=== PATIENT | female | born 1980 | race Two or more races ===

== ENCOUNTER 2023-12-07 20:30 | Emergency (ER) | payer MEDICAID, OTHER ==
[~2023-12-07] VITALS: Ht 157.5 cm; Wt 80.0 kg
[2023-12-07 21:36] VITALS: PULSE 133; RESP 15; O2SAT 89
[2023-12-07] MEDS: SODIUM CHLORIDE 0.9% 1,000 ML IVB ONE (22:05)
[2023-12-07] MEDS: ONDANSETRON HCL 4 MG/2 ML VIAL IV ONE (22:06)
[2023-12-07 22:09] LABS: Basophils # (auto) 0 10 ^3/uL (0-0.2); Basophils % (auto) 0.2 % (0.0-2.0); Eosinophils # (auto) 0 10 ^3/uL (0-0.8); Hemoglobin 14.6 g/dL (12.2-16.2); Lymphocytes # (auto) 0.8 10 ^3/uL (0.4-5.4); Lymphocytes % (auto) 9.8 % (10.0-50.0); Mean Corpuscular Hemoglobin 28.8 pg (28.0-32.0); Mean Corpuscular Hgb Conc. 34.7 g/dL (32.0-36.0); Monocytes # (auto) 0.6 10 ^3/uL (0-1.3); Monocytes % (auto) 7.2 % (0.0-12.0); Neutrophils # (auto) 6.5 10 ^3/uL (1.6-8.6); Neutrophils % (auto) 82.8 % (37.0-80.0); Red Blood Cells 5.06 10^6/uL (4.0-5.20); Red Cell Distribution Width 13.1 % (11.8-14.3); White Blood Cell 7.8 10^3/uL (4.4-10.8)
[2023-12-07] MEDS: MORPHINE SULFATE 4 MG/ML SYR/VIAL IV ONE (22:09)
[2023-12-07 22:28] LABS: Alanine Aminotransferase 53 U/L (7-40); Albumin 3.8 g/dL (3.2-4.8); Alkaline Phosphatase 81 U/L (46-116); Anion Gap 5 (5-15); Aspartate Aminotransferase 39 U/L (13-40); BUN/Creatinine Ratio 18.4 (10.0-20.0); Bilirubin, Total 2.1 mg/dL (0.2-1.0); Blood Urea Nitrogen 14 mg/dL (9-23); Calcium 9.4 mg/dL (8.7-10.4); Carbon Dioxide 26 mmol/L (20-30); Chloride 105 mmol/L (98-107); Glucose 99 mg/dL (74-106); Lipase 55 U/L (12-53); Potassium 4.3 mmol/L (3.5-5.1); Sodium 136 mmol/L (136-145); Total Protein 6.5 g/dL (5.7-8.2)
[2023-12-07 23:08] LABS: Urine Bacteria FEW /hpf (None Seen); Urine Blood TRACE /uL (Negative); Urine Clarity Clear (Clear); Urine Color Light-Yellow (Yellow); Urine Protein, UAD Negative (Negative); Urine Specific Gravity 1.024 (1.001-1.035); Urine Urobilinogen Normal (Negative); Urine WBC 22 /hpf (0 - 5); Urine pH 6.5 (5.0-9.0)
[2023-12-08] MEDS: cefTRIAXone 1GM/50ML D5W 50 ML IV ONE (00:32)
[2023-12-08] MEDS: ACETAMINOPHEN 500 MG TAB PO ONE (00:33)
[2023-12-08] MEDS ORDERED: ACET-1304 PO (01:13)
[2023-12-08] MEDS ORDERED: ZOFR4T PO (01:13)
[2023-12-08] MEDS ORDERED: CEPH500C PO (01:13)
[2023-12-08] MEDS: SODIUM CHLORIDE 0.9% 1,000 ML IV ONE (01:50)
[2023-12-08] MEDS: KETOROLAC TROMETH 30 MG/ML 1ML VIAL IV ONE (01:50)
[2023-12-08 02:00] VITALS: BP 92/53; PULSE 126; RESP 15; TEMP 100.1; O2SAT 93
== END 2023-12-08 02:57 | disposition home or self-care (01) ==
LOC: ER 20:30 → EDBD 20:30 → ER 12-08 02:57
DX: N39.0 Urinary tract infection, site not specified (principal); R10.2 Pelvic and perineal pain; E11.9 Type 2 diabetes mellitus without complications; Z98.890 Other specified postprocedural states
CPT/HCPCS: 36415; 74176; 80053; 81001; 82962; 83690; 84484; 84702; 85025; 93005; 96361; 96365; 96375; 99285; J0696; J1885; J2270; J2405; J7030

== ENCOUNTER 2024-04-20 15:57 | Emergency (ER) | payer MEDICAID ==
[~2024-04-20] VITALS: Ht 157.5 cm; Wt 78.0 kg
[~2024-04-20 15:57] MED LIST: ACET-1304 PO; CEPH500C PO; ZOFR4T PO
[2024-04-20 16:13] LABS: Basophils # (auto) 0.1 10 ^3/uL (0-0.2); Basophils % (auto) 0.5 % (0.0-2.0); Eosinophils # (auto) 0.1 10 ^3/uL (0-0.8); Hematocrit 46.6 % (36.0-46.0); Hemoglobin 15.8 g/dL (12.2-16.2); Lymphocytes # (auto) 3.9 10 ^3/uL (0.4-5.4); Lymphocytes % (auto) 42.6 % (10.0-50.0); Mean Corpuscular Hemoglobin 28.4 pg (28.0-32.0); Mean Corpuscular Hgb Conc. 33.9 g/dL (32.0-36.0); Mean Corpuscular Volume 83.6 fL (80.0-100.0); Monocytes # (auto) 0.5 10 ^3/uL (0-1.3); Monocytes % (auto) 5.5 % (0.0-12.0); Neutrophils # (auto) 4.7 10 ^3/uL (1.6-8.6); Neutrophils % (auto) 50.4 % (37.0-80.0); Nucleated Red Blood Cells % 0.2 %; Platelet Count (auto) 262 10^3/uL (140-450); Red Blood Cells 5.58 10^6/uL (4.0-5.20); Red Cell Distribution Width 13.6 % (11.8-14.3); White Blood Cell 9.3 10^3/uL (4.4-10.8)
[2024-04-20 16:30] LABS: Alanine Aminotransferase 34 U/L (7-40); Albumin 4.9 g/dL (3.2-4.8); Alkaline Phosphatase 88 U/L (46-116); Anion Gap 8 (5-15); Aspartate Aminotransferase 10 U/L (13-40); BUN/Creatinine Ratio 16.3 (10.0-20.0); Bilirubin, Total 0.9 mg/dL (0.2-1.0); Blood Urea Nitrogen 13 mg/dL (9-23); Calcium 10.9 mg/dL (8.7-10.4); Carbon Dioxide 28 mmol/L (20-31); Chloride 105 mmol/L (98-107); Glucose 102 mg/dL (74-106); Potassium 4.2 mmol/L (3.5-5.1); Sodium 141 mmol/L (136-145)
--- NOTE | 2024-04-20 17:39 | DVH ---
CHEST RADIOGRAPH Indication:CP Technique: Single frontal view of the chest was obtained COMPARISON: None FINDINGS: Lines and Tubes: None Lungs: Clear Pleura: No effusion. No pneumothorax. Cardiomediastinal contours: Unremarkable Bones: Unremarkable IMPRESSION: 1. No acute disease.
--- NOTE | 2024-04-20 17:43 | ED.PDOC ---
HPI Comments 43-year-old female with past medical history pertinent for DM, presents to ED for chest pain x1 hour, associated with shortness of breath, lightheadedness. Patient reports that the chest pain started while she was sitting at her desk. Pain is in her midsternal area and radiates to her left side. Patient reports that the pain is intermittent and states that it is 8/10 at its worse. Patient denies any fever, chills, nausea, vomiting, jaw pain, left arm pain, blurry vision. No alleviating or aggravating factors. Chief Complaint: Chest Pain Time Seen by MD: 16:01 Primary Care Provider: TRACEE Reviewed Notes: Nurses Notes, Medications, Allergies Allergies: Coded Allergies: NO KNOWN ALLERGIES (Unverified , 12/07/23) Home Meds Active Scripts Acetaminophen (Tylenol Extra Strength) 500 Mg Tab, 1000 MG PO Q6HP PRN, #30 TAB prn fever or pain Prov:LUBA HARTMAN MD 12/08/23 Ondansetron Odt 4MG Tab (ZOFRAN PO) 4 Mg Tb, 4 MG PO TID PRN, #15 TAB ODT TAB-DISSOLVE IN MOUTH, THEN SWALLOW Prov:LUBA HARTMAN MD 12/08/23 Cephalexin Monohydrate (Cephalexin) 500 Mg Cap, 1 CAP PO QID for 10 Days, #40 CAP Prov:LUBA HARTMAN MD 12/08/23 Mode of Arrival: Ambulatory Past Medical History PAST MEDICAL HISTORY: DM Surgical History: Appendectomy, Cholecystectomy, Hysterectomy COAT FINISHER History: No Pertinent COAT FINISHER History Family History Family History: Unknown Social History Smoker: Non-Smoker Alcohol: Denies ETOH Use Drugs: Denies Drug Use Constitutional: denies: chills, diaphoresis, fatigue, fever, malaise, sweats, weakness, others EENTM: denies: blurred vision, double vision, ear bleeding, ear discharge, ear drainage, ear pain, ear ringing, eye pain, eye redness, hearing loss, mouth pain, mouth swelling, nasal discharge, nose bleeding, nose congestion, nose pain, photophobia, tearing, throat pain, throat swelling, voice changes, others Respiratory: denies: cough, hemoptysis, orthopnea, SOB at rest, shortness of breath, SOB with excertion, stridor, wheezing, others Cardiovascular: reports: chest pain, lightheadedness; denies: dizzy spells, diaphoresis, Dyspnea on exertion, edema, irregular heart beat, left arm pain, palpitations, PND, syncope, others Gastrointestinal: denies: abdomen distended, abdominal pain, blood streaked bowels, constipated, diarrhea, dysphagia, difficulty swallowing, hematemesis, melena, nausea, poor appetite, poor fluid intake, rectal bleeding, rectal pain, vomiting, others Genitourinary: denies: abnormal vagina bleeding, burning, dyspareunia, dysuria, flank pain, frequency, hematuria, incontinence, pain, , vagina disc harge, urgency, others Neurological: denies: dizziness, fainting, headache, left sided numbness, left sided weakness, numbness, paresthesia, pre-existing deficit, right sided numbness, right sided weakness, seizure, speech problems, tingling, tremors, weakness, others Musculoskeletal: denies: back pain, gout, joint pain, joint swelling, muscle pain, muscle stiffness, neck pain, others Integumetry: denies: bruises, change in color, change in hair/nails, dryness, laceration, lesions, lumps, rash, wounds, others Allergic/Immunocompromised: denies: Difficulty Healing, Frequent Infections, Hives, Itching, others Hematologic/Lymphatic: denies: anemia, blood clots, easy bleeding, easy bruising, swollen glands, others Endocrine: denies: excessive hunger, excessive sweating, excessive thirst, excessive urination, flushing, intolerance to cold, intolerance to heat, unexplained weight gain, unexplained weight loss, others Psychiatric: denies: anxiety, bipolar disorder, depression, hopeless, panic disorder, schizophrenia, sleepless, suicidal, others All Other Systems: Reviewed and Negative Physical Exam General Appearance: No Apparent Distress, Normal HEENT: Normal ENT Inspection, Pharynx Normal, TMs Normal Neck: Full Range of Motion, Non-Tender, Normal, Normal Inspection Respiratory: Chest Non-Tender, Lungs Clear, No Accessory Muscle Use, No Respiratory Distress, Normal Breath Sounds Cardiovascular: No Edema, No JVD, No Murmur, No Gallop, Normal Peripheral Pulses, Regular Rate/Rhythm, Other (Chest pain is reproducible on palpation.) Breast Exam: Deferred Gastrointestinal: No Organomegaly, Non Tender, No Pulsatile Mass, Normal Bowel Sounds, Soft Genitalia: Deferred Pelvic: Deferred Rectal: Deferred Extremities: No calf tenderness, Normal capillary refill, Normal inspection, Normal range of motion, Non-tender, No pedal edema Musculoskeletal : Apperance: Normal Neurologic: Alert, digital media planner II-XII nml as Tested, No Motor Deficits, Normal Affect, Normal Mood, No Sensory Deficits Cerebellar Function: Normal Reflexes: Normal Skin: Dry, Normal Color, Warm Lymphatic: No Adenopathy EKG EKG : Pulse Rate (adult): 97 [place]: Normal Cardiac Rhythm: NSR Block: None Hypertrophy: None ST: Normal Was a procedure done? Was a procedure done?: No CP Differential Dx Differential Diagnosis: A-fib, Angina, Anxiety / Panic Attack, [place] Differential Diagnosis: Angina, Chest Wall Pain, Cholelithiasis, Costochondritis, Esophageal reflux/spasm, Gastritis, Myocardial Infarction, Pericarditis, Pneumonia, Pneumothorax, Pulmonary Embolus X-Ray, Labs, Meds, VS Vital Signs Date Time Temp Pulse Resp B/P (MAP) Pulse Ox O2 Delivery O2 Flow Rate FiO2 04/20/24 17:51 98.9 04/20/24 17:18 84 20 98 Room Air 04/20/24 17:18 97.6 84 20 121/89 (100) 98 97.6 04/20/24 16:05 97 04/20/24 16:04 99.1 85 20 148/93 (111) 97 Lab Test 04/20/24 18:59 04/20/24 17:48 04/20/24 17:13 04/20/24 16:04 Range/Units Troponin I High Sensitivity < 3 L < 3 L < 3 L </=34 ng/L Urine Color Light-yellow Yellow Urine Clarity Clear Clear Urine pH 5.5 5.0-9.0 Urine Specific [place] 1.034 1.001-1.035 Urine Protein Negative Negative Urine Ketones Negative Negative Urine Blood Negative Negative /uL Urine Nitrite Negative Negative Urine Bilirubin Negative Negative Urine Urobilinogen Normal Negative mg/dL Urine Leukocyte Esterase Negative Negative /uL Urine RBC 2 0 - 4 /hpf Urine WBC 10 0 - 5 /hpf Urine Squamous Epithelial Cells Few <5 /hpf Urine Bacteria None seen None Seen /hpf Urine Glucose 4+ H Normal mg/dL White Blood Count 9.3 4.4-10.8 10^3/uL Red Blood Count 5.58 H 4.0-5.20 10^6/uL Hemoglobin 15.8 12.2-16.2 g/dL Hematocrit 46.6 H 36.0-46.0 % Mean Corpuscular Volume 83.6 80.0-100.0 fL Mean Corpuscular Hemoglobin 28.4 28.0-32.0 pg Mean Corpuscular Hemoglobin Concent 33.9 32.0-36.0 g/dL Red Cell Distribution Width 13.6 11.8-14.3 % Platelet Count 262 140-450 10^3/uL Mean Platelet Volume 8.6 6.9-10.8 fL Neutrophils (%) (Auto) 50.4 37.0-80.0 % Lymphocytes (%) (Auto) 42.6 10.0-50.0 % Monocytes (%) (Auto) 5.5 0.0-12.0 % Eosinophils (%) (Auto) 1.0 0.0-7.0 % Basophils (%) (Auto) 0.5 0.0-2.0 % Neutrophils # (Auto) 4.7 1.6-8.6 10 ^3/uL Lymphocytes # (Auto) 3.9 0.4-5.4 10 ^3/uL Monocytes # (Auto) 0.5 0-1.3 10 ^3/uL Eosinophils # (Auto) 0.1 0-0.8 10 ^3/uL Basophils # (Auto) 0.1 0-0.2 10 ^3/uL Nucleated Red Blood Cells 0.2 % Sodium Level 141 136-145 mmol/L Potassium Level 4.2 3.5-5.1 mmol/L Chloride Level 105 98-107 mmol/L Carbon Dioxide Level 28 20-31 mmol/L Anion Gap 8 5-15 Blood Urea Nitrogen 13 9-23 mg/dL Creatinine 0.80 0.550-1.02 mg/dL Glomerular Filtration Rate Calc 94 >90 mL/min BUN/Creatinine Ratio 16.3 10.0-20.0 Serum Glucose 102 74-106 mg/dL Calcium Level 10.9 H 8.7-10.4 mg/dL Total Bilirubin 0.9 0.2-1.0 mg/dL Aspartate Amino Transferase (AST) 10 L 13-40 U/L Alanine Aminotransferase (ALT) 34 7-40 U/L Alkaline Phosphatase 88 46-116 U/L B-Type Natriuretic Peptide 2.32 0-100 pg/mL Total Protein 8.0 5.7-8.2 g/dL Albumin 4.9 H 3.2-4.8 g/dL Lipase 50 12-53 U/L Current Medications Medications (Trade) Dose Ordered Sig/Karly Route Start Time Stop Time Status Last Admin Acetaminophen (Tylenol Tablet) 500 mg ONCE ONCE PO 04/20/24 17:45 04/20/24 17:48 DC 04/20/24 17:51 X-Ray, Labs, Meds, VS Comment CXR IMPRESSION: 1. No acute disease. MDM: Patient with history as above presented with chest pain. History obtained from patient. Patient was nontoxic, stable, afebrile, ambulatory, no acute distress. Exam as above. Labs reviewed. CBC was unremarkable. No leukocytosis. No anemia. CMP did not show any significant electrolyte abnormalities. Lipase was within normal limits. Troponin x3 were negative. Urinalysis was negative for acute infection. Independently reviewed imaging. Chest x-ray was unremarkable. Reviewed external records. All findings were discussed with the patient. Differential diagnosis considered. Overall presentation is consistent with nonspecific chest pain, likely musculoskeletal. Low suspicion for ACS, pneumonia, pulmonary embolism. Patient was treated with Tylenol with improvement in symptoms. Patient was reevaluated and vital signs were reviewed. Consideration was given for admission, but the patient was stable for outpatient management. Disposition: Discussed the need to follow up diagnostics, including incidental findings. Discharged the patient with instructions to obtain outpatient follow up in 1-2 days of today's symptoms and findings, with strict return precautions if patient develops new or worsening symptoms. This medical document was created using the [employer] dictation system. Although this document has been carefully reviewed, there may still be some phonetic and typographical errors, which are due to imperfections of the software program, and do not reflect any compromise in the patient's medical care. Time of 1ST Reevaluation: 20:24 Reevaluation 1ST: Improved Patient Education/Counseling: Diagnosis, Treatment, Prognosis, Need For Follow Up Family Education/Counseling: No Family Present Departure 1 Departure Time of Disposition: 20:24 Impression: Primary Impression: Chest pain Qualified Codes: R07.89 - Other chest pain Disposition: 01 HOME / SELF CARE / HOMELESS Condition: Fair Critical Care Note Critical Care Time?: No Stability Stability form required: No Heart Score Heart Score: Heart Score Response (Comments) Value History Slightly Suspicious 0 EKG Normal 0 Age <45 0 Risk Factors 1 or 2 risk factors 1 Troponin Normal limit 0 Total 1 VINCENT CARLIN PAC Apr 20, 2024 17:43
[2024-04-20] MEDS: ACETAMINOPHEN 500 MG TAB PO ONE (17:51)
[2024-04-20 17:56] LABS: Urine Bacteria None Seen /hpf (None Seen)
[2024-04-20 18:12] LABS: Urine Blood Negative /uL (Negative); Urine Clarity Clear (Clear); Urine Color Light-Yellow (Yellow); Urine Protein, UAD Negative (Negative); Urine Specific Gravity 1.034 (1.001-1.035); Urine Urobilinogen Normal (Negative); Urine WBC 10 /hpf (0 - 5); Urine pH 5.5 (5.0-9.0)
[2024-04-20 20:48] VITALS: BP 140/84; PULSE 79; RESP 20; TEMP 98.1; O2SAT 96
--- NOTE | 2024-04-21 06:37 | ECG ---
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
== END 2024-04-20 20:50 | disposition home or self-care (01) ==
LOC: EEVIPCON 15:57 → ER 15:57
DX: R07.89 Other chest pain (principal); E11.9 Type 2 diabetes mellitus without complications; R42 Dizziness and giddiness; Z90.49 Acquired absence of other specified parts of digestive tract; Z90.710 Acquired absence of both cervix and uterus
CPT/HCPCS: 36415; 71045; 80053; 81001; 83690; 83880; 84484; 85025; 93005

== ENCOUNTER 2024-05-28 16:26 | Emergency (ER) | payer MEDICAID ==
[~2024-05-28] VITALS: Ht 158.8 cm; Wt 78.9 kg
--- NOTE | 2024-05-28 16:47 | ED.PDOC ---
Eye-HPI HPI Comments 43y F who presents to the ED for chief complaint of eye pain. Pt states 1 days prior, pt states she noticed redness from her L eye. Pt states she continued to have redness from L eye today with noted blurred vision and perirorbital pain and came to the ED for further evaluation. Pt otherwise denies headache, dizziness, nausea, vomiting or diarrhea. Pt is alert and oriented and has no changes in vision, gait or speech are noted. Pt has redness from L eye. Pt otherwise denies any fall or injury. Pt otherwise denies any other symptoms at this time. Time Seen by MD: 16:45 Primary Care Provider: TRACEE Allergies: Coded Allergies: NO KNOWN ALLERGIES (Unverified , 12/07/23) Home Meds Active Scripts Acetaminophen (Tylenol Extra Strength) 500 Mg Tab, 1000 MG PO Q6HP PRN, #30 TAB prn fever or pain Prov:LUBA HARTMAN MD 12/08/23 Ondansetron Odt 4MG Tab (ZOFRAN PO) 4 Mg Tb, 4 MG PO TID PRN, #15 TAB ODT TAB-DISSOLVE IN MOUTH, THEN SWALLOW Prov:LUBA HARTMAN MD 12/08/23 Cephalexin Monohydrate (Cephalexin) 500 Mg Cap, 1 CAP PO QID for 10 Days, #40 CAP Prov:LUBA HARTMAN MD 12/08/23 Information Source: Patient Mode of Arrival: Ambulatory Brought in by: self Timing: Days Duration: Since onset Prehospital treatment: None Quality: Pain, Red Eye Location: Left Conjunctiva: Subconjunctival hemorrhag Onset: Spontaneous Past Medical History PAST MEDICAL HISTORY: DM Surgical History: Appendectomy, Cholecystectomy, Hysterectomy 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 LAP CUTTER TRUER OPERATOR History Family History Family History: Unknown Social History Smoker: Non-Smoker Alcohol: Denies ETOH Use Drugs: Denies Drug Use Lives In: Home Constitutional: denies: chills, diaphoresis, fatigue, fever, malaise, sweats, weakness, others EENTM: reports: eye pain, eye redness; denies: blurred vision, double vision, ear bleeding, ear discharge, ear drainage, ear pain, ear ringing, hearing loss, mouth pain, mouth swelling, nasal discharge, nose bleeding, nose congestion, nose pain, photophobia, tearing, throat pain, throat swelling, voice changes, others Respiratory: denies: cough, hemoptysis, orthopnea, SOB at rest, shortness of breath, SOB with excertion, stridor, wheezing, others Cardiovascular: denies: chest pain, dizzy spells, diaphoresis, Dyspnea on exertion, edema, irregular heart beat, left arm pain, lightheadedness, palpitations, PND, syncope, others Gastrointestinal: denies: abdomen distended, abdominal pain, blood streaked bowels, constipated, diarrhea, dysphagia, difficulty swallowing, hematemesis, melena, nausea, poor appetite, poor fluid intake, rectal bleeding, rectal pain, vomiting, others Genitourinary: denies: abnormal vagina bleeding, burning, dyspareunia, dysuria, flank pain, frequency, hematuria, incontinence, pain, , vagina discharge, urgency, others Neurological: denies: dizziness, fainting, headache, left sided numbness, left sided weakness, numbness, paresthesia, pre-existing deficit, right sided numbness, right sided weakness, seizure, speech problems, tingling, tremors, weakness, others Musculoskeletal: denies: back pain, gout, joint pain, joint swelling, muscle pain, muscle stiffness, neck pain, others Integumetry: denies: bruises, change in color, change in hair/nails, dryness, laceration, lesions, lumps, rash, wounds, others Allergic/Immunocompromised: denies: Difficulty Healing, Frequent Infections, Hives, Itching, others Hematologic/Lymphatic: denies: anemia, blood clots, easy bleeding, easy bruising, swollen glands, others Endocrine: denies: excessive hunger, excessive sweating, excessive thirst, excessive urination, flushing, intolerance to cold, intolerance to heat, unexplained weight gain, unexplained weight loss, others Psychiatric: denies: anxiety, bipolar disorder, depression, hopeless, panic disorder, schizophrenia, sleepless, suicidal, others All Other Systems: Reviewed and Negative Physical Exam General Appearance: Mild Distress (Due to left eye concerns.), Obese HEENT: Other (Medial aspect of the left eye reveals a subconjunctival hemorrhage. Hemorrhage does not extend into the iris. No hyphema. No change in vision. Sharp demarcation noted.) Neck: Full Range of Motion, Non-Tender, Normal, Normal Inspection Respiratory: Chest Non-Tender, Lungs Clear, No Accessory Muscle Use, No Respiratory Distress, Normal Breath Sounds Cardiovascular: No Edema, No JVD, No Murmur, No Gallop, Normal Peripheral Pulses, Regular Rate/Rhythm Breast Exam: Deferred Gastrointestinal: No Organomegaly, Non Tender, No Pulsatile Mass, Normal Bowel Sounds, Soft Genitalia: Deferred Pelvic: Deferred Rectal: Deferred Extremities: No calf tenderness, Normal capillary refill, Normal inspection, Normal range of motion, Non-tender, No pedal edema Neurologic: Alert, No Motor Deficits, Normal Affect, Normal Mood, No Sensory Deficits Cerebellar Function: Normal Reflexes: Normal Skin: Dry, Normal Color, Warm Lymphatic: No Adenopathy Was a procedure done? Was a procedure done?: No EENT DIFF Eye: Conjunctivitis, Subconjunctival Hemorrhag, Virtreous Hemorrhage X-Ray, Labs, Meds, VS Vital Signs Date Time Temp Pulse Resp B/P (MAP) Pulse Ox O2 Delivery O2 Flow Rate FiO2 05/28/24 16:44 98.4 80 22 131/86 (101) [address] [place] [address] Ph: [phone] DIAGNOSTIC IMAGING Diagnostic Imaging Report : [id number] Signed PATIENT: ANGELY VALDEZ ACCT: [id number] UNIT: [id number] : 1980 LOC: ER ROOM / BED: / AGE / SEX: 43 / F ADM STATUS: REG ER SERVICE 1641 ORDERING PHYSICIAN: CHARLOTTE HIDALGO PAC PROCEDURE(s): OB1CT - ORBITS WO CONTRAST REASON: Left globe trauma ORDER NUMBER(s): [id number], ACCESSION NUMBER(s): [id number] INDICATION: Left globe trauma EXAM DATE: 05/28/2024 04:50 PM COMPARISON: None TECHNIQUE: CT of the orbits without intravenous contrast. RADIATION DOSE: CTDIvol: 55.39 mGy, DLP: 505.15 mGy*cm FINDINGS: The orbits and globes unremarkable. The lens is intact. No significant periorbital soft tissue edema. The extraocular muscles are unremarkable. The visualized optic nerve is unremarkable. No orbital masses are visualized. Minimal mucoperiosteal thickening of the ethmoid air cells with polypoid mucoperiosteal thickening /small mucous retention cysts within the left sphenoid sinus. The remainder of the paranasal sinuses and visualized mastoids are clear. Small nodules within the bilateral parotid glands which may represent small lymp h nodes. IMPRESSION: The orbits and globes are unremarkable. ATED BY: CARIE GANDHI DO DICTATED DATE/TIME: 05/28/241731 SIGNED BY: CARIE GANDHI DO SIGNED DATE/TIME: 05/28/241731 CC: X-Ray, Labs, Meds, VS Comment All studies performed the ED were evaluated by me personally. Orbital CT was unremarkable for any acute process. Patient is suffering from a medial left eye subconjunctival hemorrhage. Discussed the sequelae of the injury with the patient. Advised Tylenol as needed for pain relief. Advised patient follow up with aerial lineman in the next 3-5 days for definitive evaluation. Time of 1ST Reevaluation: 18:09 Reevaluation 1ST: Improved Consultation: PCP Patient Education/Counseling: Diagnosis, Treatment Family Education/Counseling: No Family Present Additional Information - I reviewed the following notes from patient's past medical encounters: - The following tests were ordered, and results were reviewed by me: (Labs, X- Ray, EKG): CT head without contrast - Additional information was gathered from interviewing the following independent Historian: (Family, Other Providers, EMT): none - I reviewed and agreed with the following test results read by other provider: (X-ray, CT, US): radiologist - I discussed treatments and results with medical personnel and: (consultants, family): none Departure 1 Departure Time of Disposition: 18:10 Impression: Primary Impression: Subconjunctival hemorrhage of left eye Disposition: 01 HOME / SELF CARE / HOMELESS Condition: Stable Additional Instructions: Advised Tylenol as needed for pain relief. Patient should follow up with Ophthalmology in the next 3-5 days for definitive evaluation. e-Prescriptions Acetaminophen (Acetaminophen) 500 Mg Tab 500 MG PO Q4HP PRN, #20 TAB Prov: CHARLOTTE HIDALGO PAC 05/28/24 Discharged With: Self, Friend Critical Care Note Critical Care Time?: No Stability Stability form required: No Heart Score Heart Score: Heart Score Response (Comments) Value History N/A 0 EKG N/A 0 Age N/A 0 Risk Factors N/A 0 Troponin N/A 0 Total 0 I personally scribed for CHARLOTTE HIDALGO PAC ([facility]) on 05/28/24 at 16:47. Electronically submitted by Meet Lee ([email or web address]). I personally scribed for CHARLOTTE HIDALGO PAC ([facility]) on 05/28/24 at 17:59. Electronically submitted by Meet Lee ([email or web address]). CHARLOTTE HIDALGO PAC May 28, 2024 16:47
--- NOTE | 2024-05-28 17:34 | DVH ---
INDICATION: Left globe trauma EXAM DATE: 05/28/2024 04:50 PM COMPARISON: None TECHNIQUE: CT of the orbits without intravenous contrast. RADIATION DOSE: CTDIvol: 55.39 mGy, DLP: 505.15 mGy*cm FINDINGS: The orbits and globes unremarkable. The lens is intact. No significant periorbital soft tissue edema. The extraocular muscles are unremarkable. The visualized optic nerve is unremarkable. No orbital mass es are visualized. Minimal mucoperiosteal thickening of the ethmoid air cells with polypoid mucoperiosteal thickening /s mall mucous retention cysts within the left sphenoid sinus. The remainder of the paranasal sinuses an d visualized mastoids are clear. Small nodules within the bilateral parotid glands which may represent small lymph nodes. IMPRESSION: The orbits and globes are unremarkable.
[2024-05-28] MEDS ORDERED: ACET500T58 PO (18:11)
[2024-05-28 18:15] VITALS: BP 120/77; PULSE 80; RESP 18; O2SAT 99
== END 2024-05-28 18:21 | disposition home or self-care (01) ==
LOC: ER 16:26 → EEVIPCON 16:26 → ER 18:21
DX: H11.32 Conjunctival hemorrhage, left eye (principal); E11.9 Type 2 diabetes mellitus without complications; Z90.49 Acquired absence of other specified parts of digestive tract; Z90.710 Acquired absence of both cervix and uterus; Z79.899 Other long term (current) drug therapy
CPT/HCPCS: 70480

== ENCOUNTER 2024-07-29 19:20 | Emergency (ER) | payer MEDICAID ==
[~2024-07-29] VITALS: Ht 167.6 cm; Wt 90.9 kg
[~2024-07-29 19:20] MED LIST changes: +ACET500T58 PO
--- NOTE | 2024-07-29 20:34 | ED.PDOC ---
Marcellus. trauma (HPI) HPI Comments 43-YEAR-OLD FEMALE PRESENTS TO ER WITH COMPLAINTS OF FALL INJURY X1 DAY. PATIENT PRESENTS VIA EMS, REPORTING THAT SHE SLIPPED AND FELL OUT OF THE SHOWER AND LANDED ONTO HER LEFT SHOULDER ONTO TILE MARK AT 6:30 P.M. PRIOR TO ARRIVAL TO ER AND HAS SINCE BEEN EXPERIENCING 8/10 LEFT SHOULDER PAIN WITH RADIATION TOWARDS THE LEFT-SIDED NECK. DENIES HEAD INJURY/LOC. PATIENT WAS GIVEN 100 MCG OF FENTANYL BY EMS WITH SOME RELIEF. PATIENT PRESENTS TO ER AMBULATORY ON ARRIVAL, ALERT AND ORIENTED X4, WITH STEADY GAIT, IN NO DISTRESS. DENIES HEADACHE, NAUSEA/VOMITING, NUMBNESS/TINGLING, SHORTNESS OF BREATH, CHEST PAIN, SKIN CHANGES OR ANY FURTHER SYMPTOMS/COMPLAINTS Chief Complaint: Fall Injury Time Seen by MD: 20:16 Primary Care Provider: JANELLE Ames notes: Nurses Notes, Medications, Allergies Allergies: Coded Allergies: Penicillins (Verified Allergy, Unknown, 07/29/24) Home Meds Active Scripts Cyclobenzaprine HCl (Cyclobenzaprine Hydrochlo) 5 Mg Tab, 5 MG PO Q4HPRN, #14 TAB 0 Refills Prov:NOAM NAPIER 07/29/24 Acetaminophen W/ Codeine (Tylenol W/Cod #3) 1 Tab Tb, 1 TAB PO Q6HPRN, #10 TAB 0 Refills Prov:NOAM NAPIER 07/29/24 Acetaminophen (Acetaminophen) 500 Mg Tab, 500 MG PO Q4HP PRN, #20 TAB Prov:CHARLOTTE HIDALGO 05/28/24 Acetaminophen (Tylenol Extra Strength) 500 Mg Tab, 1000 MG PO Q6HP PRN, #30 TAB prn fever or pain Prov:LUBA HARTMAN MD 12/08/23 Ondansetron Odt 4MG Tab (ZOFRAN PO) 4 Mg Tb, 4 MG PO TID PRN, #15 TAB ODT TAB-DISSOLVE IN MOUTH, THEN SWALLOW Prov:LUBA HARTMAN MD 12/08/23 Cephalexin Monohydrate (Cephalexin) 500 Mg Cap, 1 CAP PO QID for 10 Days, #40 CAP Prov:LUBA HARTMAN MD 12/08/23 Information Source: Patient Mode of Arrival: EMS Past Medical History PAST MEDICAL HISTORY: DM Surgical History: Appendectomy, Cholecystectomy, Hysterectomy STAFF THERAPIST History: No Pertinent STAFF THERAPIST History Family History Family History: Unknown Social History Smoker: Non-Smoker Alcohol: Denies ETOH Use Drugs: Denies Drug Use Lives In: Home Constitutional: denies: chills, diaphoresis, fatigue, fever, malaise, sweats, weakness, others EENTM: denies: blurred vision, double vision, ear bleeding, ear discharge, ear drainage, ear pain, ear ringing, eye pain, eye redness, hearing loss, mouth pain, mouth swelling, nasal discharge, nose bleeding, nose congestion, nose pain, photophobia, tearing, throat pain, throat swelling, voice changes, others Respiratory: denies: cough, hemoptysis, orthopnea, SOB at rest, shortness of breath, SOB with excertion, stridor, wheezing, others Cardiovascular: denies: chest pain, dizzy spells, diaphoresis, Dyspnea on exertion, edema, irregular heart beat, left arm pain, lightheadedness, palpitations, PND, syncope, others Gastrointestinal: denies: abdomen distended, abdominal pain, blood streaked bowels, constipated, diarrhea, dysphagia, difficulty swallowing, hematemesis, melena, nausea, poor appetite, poor fluid intake, rectal bleeding, rectal pain, vomiting, others Genitourinary: denies: abnormal vagina bleeding, burning, dyspareunia, dysuria, flank pain, frequency, hematuria, incontinence, pain, , vagina discharg e, urgency, others Neurological: denies: dizziness, fainting, headache, left sided numbness, left sided weakness, numbness, paresthesia, pre-existing deficit, right sided numbness, right sided weakness, seizure, speech problems, tingling, tremors, weakness, others Musculoskeletal: reports: others ( STATED IN HPI) Integumetry: denies: bruises, change in color, change in hair/nails, dryness, laceration, lesions, lumps, rash, wounds, others Allergic/Immunocompromised: denies: Difficulty Healing, Frequent Infections, Hives, Itching, others Hematologic/Lymphatic: denies: anemia, blood clots, easy bleeding, easy bruising, swollen glands, others Endocrine: denies: excessive hunger, excessive sweating, excessive thirst, excessive urination, flushing, intolerance to cold, intolerance to heat, unexplained weight gain, unexplained weight loss, others Psychiatric: denies: anxiety, bipolar disorder, depression, hopeless, panic disorder, schizophrenia, sleepless, suicidal, others Physical Exam General Appearance: No Apparent Distress, Obese HEENT: Normal ENT Inspection, PERRL/EOMI, Pharynx Normal, TMs Normal Neck: Full Range of Motion, Other (TTP TO LEFT CERVICAL PARASPINALS NOTED. NO SKIN CHANGES NOTED) Respiratory: Chest Non-Tender, Lungs Clear, No Accessory Muscle Use, No Respiratory Distress, Normal Breath Sounds Cardiovascular: No Murmur, No Gallop, Regular Rate/Rhythm Breast Exam: Deferred Gastrointestinal: NOT DONE Genitalia: Deferred Pelvic: Deferred Rectal: Deferred Extremities: Normal capillary refill Musculoskeletal : Extremity Location: Shoulder (TTP TO LEFT PROXIMAL HUMERUS NOTED. POSITIVE APLEY SCRATCH TEST ON LEFT. 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 Was a procedure done?: No Sedation Sedation?: No Differential Diagnosis Multiple Trauma: Closed Head Injury, Fractures, Vascular Injury Neck Injury: Spinal Cord Injury, Other (Dislocation) X-Ray, Labs, Meds, VS Vital Signs Date Time Temp Pulse Resp B/P (MAP) Pulse Ox O2 Delivery O2 Flow Rate FiO2 07/29/24 21:11 98.3 76 16 119/73 (88) 95 98.3 07/29/24 19:55 88 18 98 Room Air 07/29/24 19:55 98.6 88 18 147/95 (112) 98 98.6 07/29/24 19:26 98.6 88 18 147/95 (112) 98 PATIENT: ANGELY VALDEZACCT: [id number] UNIT: [id number] : 1980 LOC: ER ROOM / BED: / AGE / SEX: 43 / F ADM STATUS: REG ER SERVICE 15 ORDERING PHYSICIAN: NOAM NAPIER PROCEDURE(s): LSHD2 - L SHOULDER 2+ VIEW XRAY REASON: LEFT SHOULDER PAIN ORDER NUMBER(s): [id number], ACCESSION NUMBER(s): [id number] CLINICAL INDICATION: LEFT SHOULDER PAIN TECHNIQUE: 3 radiographic views of the left shoulder were obtained. Comparison: None FINDINGS/IMPRESSION: There is no evidence of acute fracture or dislocation. The visualized joint space is well maintained. The alignment is anatomical. There is no radiopaque foreign body. HS:Y ATED BY: CHINTAN LAGOS Jr., DO DICTATED DATE/TIME: 07/29/242055 SIGNED BY: CHINTAN LAGOS Jr., SIGNED DATE/TIME: 07/29/242055 CC: PATIENT: ANGELY VALDEZACCT: [id number] UNIT: [id number] : 1980 LOC: ER ROOM / BED: / AGE / SEX: 43 / F ADM STATUS: REG ER SERVICE 15 ORDERING PHYSICIAN: NOAM NAPIER PROCEDURE(s): CS2 - CERVICAL WITHOUT CONTRAST REASON: NECK PAIN ORDER NUMBER(s): [id number], ACCESSION NUMBER(s): [id number] EXAM: CT CERVICAL WITHOUT CONTRAST HISTORY: NECK PAIN COMPARISON: None CTDIvol mGy, DLP mGy*cm. TECHNIQUE: Multiple axial CT images of the spine were obtained using bone algorithm. Axial and coronal reformatting was done. Bone and soft tissue windows were reviewed. FINDINGS: No prevertebral soft tissue abnormality is noted. There is normal alignment of the cervical spine. The cervical vertebral bodies are normal in appearance with no fracture or dislocation. Visualized paraspinal soft tissues are grossly unremarkable. No spinal canal or neural foraminal stenosis. IMPRESSION: No abnormality demonstrated. ATED BY: DELBERT KING MD DICTATED DATE/TIME: 07/29/242133 SIGNED BY: DELBERT KING MD SIGNED DATE/TIME: 07/29/242133 CC: LEFT SHOULDER X-RAY REVIEWED CT CERVICAL WITHOUT CONTRAST REVIEWED LEFT ARM SLING APPLIED PATIENT NEUROVASCULARLY INTACT AND REPORTED IMPROVEMENT IN SYMPTOMS PRIOR TO DISCHARGE ADVISED ON REST/NO STRENUOUS ACTIVITY, ELEVATION AND ALTERNATE ICE ON/OFF NEEDED FOR PAIN ADVISED TO FOLLOW UP WITH PCP AND ORTHOPEDICS IN 1-2 DAYS PATIENT VERBALIZED UNDERSTANDING AND AGREEABLE WITH CURRENT PLAN OF CARE ADVISED TO RETURN TO ER IMMEDIATELY IF SYMPTOMS WORSEN Images Reviewed?: Images reviewed and evaluated by me Time of 1ST Reevaluation: 20:32 Reevaluation 1ST: N/A Time of 2ND Reevaluation: 21:40 Reevaluation 2ND: Improved Patient Education/Counseling: Diagnosis, Treatment, Prognosis, Need For Follow Up Family Education/Counseling: Diagnosis, Treatment, Prognosis, Need For Follow Up Departure 1 Departure Time of Disposition: 21:42 Impression: Primary Impression: Left shoulder strain Qualified Codes: S46.912A - Strain of unspecified muscle, fascia and tendon at shoulder and upper arm level, left arm, initial encounter Additional Impression: Cervical strain Qualified Codes: S16.1XXA - Strain of muscle, fascia and tendon at neck level, initial encounter Disposition: HOME / SELF CARE / HOMELESS Condition: Stable e-Prescriptions Cyclobenzaprine HCl (Cyclobenzaprine Hydrochlo) 5 Mg Tab 5 MG PO Q4HPRN, #14 TAB 0 Refills Prov: NOAM NAPIER 07/29/24 Acetaminophen W/ Codeine (Tylenol W/Cod #3) 1 Tab Tb 1 TAB PO Q6HPRN, #10 TAB 0 Refills Prov: NOAM NAPIER 07/29/24 Discharged With: Significant Other Critical Care Note Critical Care Time?: No Stability Stability form required: No Heart Score Heart Score: Heart Score Response (Comments) Value History N/A 0 EKG N/A 0 Age N/A 0 Risk Factors N/A 0 Troponin N/A 0 Total 0 NOAM NAPIER Jul 29, 2024 20:34
--- NOTE | 2024-07-29 20:59 | DVH ---
CLINICAL INDICATION: LEFT SHOULDER PAIN TECHNIQUE: 3 radiographic views of the left shoulder were obtained. Comparison: None FINDINGS/IMPRESSION: There is no evidence of acute fracture or dislocation. The visualized joint space is well maintained. The alignment is anatomical. There is no radiopaque foreign body. HS:Y
[2024-07-29 21:11] VITALS: BP 119/73; PULSE 76; RESP 16; TEMP 98.3; O2SAT 95
--- NOTE | 2024-07-29 21:37 | DVH ---
EXAM: CT CERVICAL WITHOUT CONTRAST HISTORY: NECK PAIN COMPARISON: None CTDIvol mGy, DLP mGy*cm. TECHNIQUE: Multiple axial CT images of the spine were obtained using bone algorithm. Axial and coron al reformatting was done. Bone and soft tissue windows were reviewed. FINDINGS: No prevertebral soft tissue abnormality is noted. There is normal alignment of the cervical spine. Th e cervical vertebral bodies are normal in appearance with no fracture or dislocation. Visualized para spinal soft tissues are grossly unremarkable. No spinal canal or neural foraminal stenosis. IMPRESSION: No abnormality demonstrated.
[2024-07-29] MEDS ORDERED: CYCL-614 PO (21:46)
[2024-07-29] MEDS ORDERED: ACE3T PO (21:46)
== END 2024-07-29 22:01 | disposition home or self-care (01) ==
LOC: EDBD 19:20 → EEVIPCON 19:20 → ER 19:20
DX: S16.1XXA Strain of muscle, fascia and tendon at neck level, initial encounter (principal); S46.912A Strain of unspecified muscle, fascia and tendon at shoulder and upper arm level, left arm, initial encounter; E11.9 Type 2 diabetes mellitus without complications; Z90.49 Acquired absence of other specified parts of digestive tract; Z90.710 Acquired absence of both cervix and uterus; Z88.0 Allergy status to penicillin; Z79.899 Other long term (current) drug therapy; W18.2XXA Fall in (into) shower or empty bathtub, initial encounter; Y93.89 Activity, other specified; Y92.89 Other specified places as the place of occurrence of the external cause; Y99.8 Other external cause status
CPT/HCPCS: 72125; 73030

== ENCOUNTER → 2025-01-08 | Outpatient (CLI) | payer BC ==
[~2025-01-08] MED LIST changes: +ACE3T PO; +CYCL-614 PO
[2025-01-08 08:26] LABS: Cholesterol 160 mg/dL (< 200)
[2025-01-08 08:30] LABS: HDL Cholesterol 37 mg/dL (40-59); Triglycerides 222 mg/dL (< 150)
== END | disposition home or self-care (01) ==
LOC: LAB 07:31
PROVIDERS: ATTEND Family Medicine
DX: E78.1 Pure hyperglyceridemia (principal); E11.9 Type 2 diabetes mellitus without complications
CPT/HCPCS: 36415; 80061; 83036